=== PATIENT | male | born 1970 | race Caucasian/White ===

== ENCOUNTER 2016-08-29 00:04 | Inpatient (IN) | payer OTHER ==
[~2016-08-29] VITALS: Ht 185.4 cm; Wt 143.0 kg
[~2016-08-29 00:04] MED LIST: ALDACTONE25 MG PO; AMIODARONE PO; ASCORBIC ACID500 M3 PO; AURALGAN14.8 ML RIGHT EAR; AZELASTINE205.5 MCG/ BOTH NARES; BACTRIM,SEPT1 TABLET PO; BUSPAR10 MG PO; BUSPIRONE HCL10 MG PO; CARVEDILOL3.125 MG PO; CELEBREX200 MG PO; CORDARONE200 MG PO; COREG3.125 M1 PO; COREG6.25 M1 PO; FOLIC ACID1 MG PO; FUROSEMIDE40 MG PO; FUROSEMIDE80 MG PO; K-DUR10 MEQ PO; KEFLEX500 MG PO; KEFLEX750 MG PO; LASIX40 MG PO; LASIX80 MG PO; LIBRIUM5 MG PO; LISINOPRIL5 MG PO; METOLAZONE5 MG PO; METOPROLOL SUCC25 MG PO; MIRTAZAPINE7.5 MG PO; MULTI VITAMIN1 EACH PO; NAPROSYN-EC500 MG PO; NAPROXEN500 M1 PO; NORCO 5/3251 TABLET PO; PERCOCET 5/31 TABLET PO; POTASSIUM CHLO20 ME1 PO; THERAGRAN1 TABLET PO; TOPROL XL25 MG PO; ULTRAM50 MG PO; VITAMIN B-1100 MG PO; VITAMIN C500 M1 PO; XARELTO1 EACH PO; XARELTO15 MG PO; XARELTO20 MG PO
[2016-08-29 00:54] LABS: CREATININE 1.2 mg/dL (0.6-1.3); POTASSIUM 2.3 mEq/L (3.7-5.4)
[2016-08-29 01:02] LABS: EOSINOPHIL (%) 2.1 % (0-5); EOSINOPHIL COUNT 0.2 K/uL (0-0.3); HEMATOCRIT 45.1 % (38.0-50.0); IMMATURE GRANULOCYTE (%) 0.4 % (0.0-0.7); INSTRUMENT ABS NEUTROPHIL CT 7.6 K/uL; MCH 32.8 PG (29.0-34.0); MCHC 34.8 G/DL (30.0-36.0); MCV 94.4 FL (86-99); MEAN PLAT.VOLUME 10.4 uM^3 (9.0-12.4); MONOCYTE (%) 7.3 % (3-12); MONOCYTE COUNT 0.8 K/uL (0-0.8); NEUTROPHIL (%) 71.6 % (45-76); NEUTROPHIL COUNT 7.6 K/uL (1.8-6.4); PLATELET COUNT 262 K/uL (156-360); RBC DIS.WIDTH-CV 12.7 % (11.8-14.6); RBC DIS.WIDTH-SD 44.2 % (39-53); RED BLOOD COUNT 4.78 M/uL (4.00-5.50); WHITE BLOOD COUNT 10.6 K/uL (4.1-10.2)
[2016-08-29 01:22] LABS: TROP-I INTERPRETATION NEGATIVE; TROPONIN-I 0.16 ng/mL (0.0-0.30)
[2016-08-29 04:07] LABS: CHLORIDE 94 mEq/L (99-109); POTASSIUM 3.3 mEq/L (3.7-5.4); SODIUM 136 mEq/L (136-147)
[2016-08-29 04:08] LABS: GLUCOSE 134 mg/dL (70-99)
[2016-08-29 04:10] LABS: ANION GAP 12 MEQ/L (2-14)
[2016-08-29 04:12] LABS: GFR ESTIMATE (CALCULATED) > 59 mL/min/
[2016-08-29 04:13] LABS: UREA NITROGEN (BUN) 15 mg/dL (9-23)
[2016-08-29 08:26] LABS: TROP-I INTERPRETATION NEGATIVE; TROPONIN-I 0.07 ng/mL (0.0-0.30)
[2016-08-29 08:28] LABS: POTASSIUM 3.3 mEq/L (3.7-5.4)
[2016-08-29 08:29] LABS: MAGNESIUM 2.3 mg/dL (1.3-2.7)
[2016-08-29 08:29] LABS: MAGNESIUM 2.1 mg/dL (1.3-2.7)
[2016-08-29] MEDS ORDERED: CORDARONE200 MG PO (08:39)
[2016-08-29] MEDS ORDERED: TYLENOL REGULA325 MG PO (08:44)
[2016-08-29 11:59] VITALS: BP 107/78
== END 2016-08-29 11:20 | disposition left against medical advice (07) | DRG 315 ==
LOC: EME 00:04 → EDOF 04:15
PROVIDERS: Emergency Medicine; Hospitalist
DX: T82.118A Breakdown (mechanical) of other cardiac electronic device, initial encounter (principal); I47.2 Ventricular tachycardia; I42.6 Alcoholic cardiomyopathy; Z68.41 Body mass index [BMI] 40.0-44.9, adult; E87.6 Hypokalemia; F10.20 Alcohol dependence, uncomplicated; I25.10 Atherosclerotic heart disease of native coronary artery without angina pectoris; Z91.120 Patient's intentional underdosing of medication regimen due to financial hardship; E66.01 Morbid (severe) obesity due to excess calories; I10 Essential (primary) hypertension; I48.0 Paroxysmal atrial fibrillation; G40.909 Epilepsy, unspecified, not intractable, without status epilepticus; F43.10 Post-traumatic stress disorder, unspecified; F17.210 Nicotine dependence, cigarettes, uncomplicated; S62.102D Fracture of unspecified carpal bone, left wrist, subsequent encounter for fracture with routine healing; Z79.01 Long term (current) use of anticoagulants; Z86.718 Personal history of other venous thrombosis and embolism; Z86.711 Personal history of pulmonary embolism; Z91.19 Patient's noncompliance with other medical treatment and regimen
CPT/HCPCS: 71010; 80047; 80048; 83735; 83880; 84132 91; 84484; 85025; 93005; 99281; 99285; J0610; J2060; J2270; J3475; J3480; J7050

== ENCOUNTER 2017-01-19 18:31 | Inpatient (IN) | payer OTHER ==
[~2017-01-19] VITALS: Ht 188 cm; Wt 82.5 kg
[~2017-01-19 18:31] MED LIST changes: +TYLENOL REGULA325 MG PO
[2017-01-19 18:55] LABS: HEMATOCRIT 44.8 % (38.0-50.0); MCH 33.5 PG (29.0-34.0); MCHC 35.9 G/DL (30.0-36.0); MCV 93.3 FL (86-99); MEAN PLAT.VOLUME 10.4 uM^3 (9.0-12.4); PLATELET COUNT 228 K/uL (156-360); RBC DIS.WIDTH-CV 12.8 % (11.8-14.6); RBC DIS.WIDTH-SD 43.9 % (39-53); WHITE BLOOD COUNT 8.8 K/uL (4.1-10.2)
[2017-01-19 18:59] LABS: CREATININE 1.1 mg/dL (0.6-1.3); POTASSIUM 2.2 mEq/L (3.7-5.4)
[2017-01-19 19:04] LABS: INTER. NORMALIZED RATIO 1.8; PROTHROMBIN TIME 19.7 SEC (10.2-12.9)
[2017-01-19 19:07] LABS: PTT 39.5 SEC (25-37)
[2017-01-19 19:08] LABS: CHLORIDE 97 mEq/L (99-109); POTASSIUM 2.7 mEq/L (3.7-5.4); SODIUM 143 mEq/L (136-147)
[2017-01-19 19:09] LABS: MAGNESIUM 1.9 mg/dL (1.3-2.7)
[2017-01-19 19:10] LABS: GLUCOSE 158 mg/dL (70-99)
[2017-01-19 19:11] LABS: ANION GAP 22 MEQ/L (2-14)
[2017-01-19 19:14] LABS: GFR ESTIMATE (CALCULATED) > 59 mL/min/
[2017-01-19 19:15] LABS: UREA NITROGEN (BUN) 11 mg/dL (9-23)
[2017-01-19 19:18] LABS: TROP-I INTERPRETATION NEGATIVE; TROPONIN-I 0.08 ng/mL (0.0-0.30)
[2017-01-19 19:22] LABS: SERUM ETHYL ALCOHOL < 10 mg/dL
[2017-01-19] MEDS ORDERED: HYDROCODON-ACE1 EAC8 PO (21:40)
[2017-01-19] MEDS ORDERED: BUSPAR15 MG PO (21:44)
[2017-01-19] MEDS ORDERED: SPIRONOLACTONE25 MG PO (21:45)
[2017-01-19] MEDS ORDERED: CYMBALTA30 MG PO (21:49)
[2017-01-19] MEDS ORDERED: ZANAFLEX2 M1 PO (21:50)
[2017-01-19 23:47] VITALS: BP 125/72
[2017-01-20 01:47] LABS: TROP-I INTERPRETATION NEGATIVE; TROPONIN-I 0.12 ng/mL (0.0-0.30)
[2017-01-20] MEDS ORDERED: XARELTO20 MG PO (03:58)
[2017-01-20 04:25] VITALS: BP 126/90
[2017-01-20 07:17] LABS: HEMATOCRIT 37.6 % (38.0-50.0); MCH 33.2 PG (29.0-34.0); MCHC 34.3 G/DL (30.0-36.0); MCV 96.9 FL (86-99); MEAN PLAT.VOLUME 10.5 uM^3 (9.0-12.4); PLATELET COUNT 171 K/uL (156-360); RBC DIS.WIDTH-CV 13.3 % (11.8-14.6); RBC DIS.WIDTH-SD 47.2 % (39-53); RED BLOOD COUNT 3.88 M/uL (4.00-5.50); WHITE BLOOD COUNT 10.6 K/uL (4.1-10.2)
[2017-01-20 07:32] LABS: ANION GAP 9 MEQ/L (2-14); CHLORIDE 103 MEQ/L (99-109); GFR ESTIMATE (CALCULATED) > 59 mL/min/; SAMPLE HEMOLYSIS CHECK 0; SAMPLE ICTERIC CHECK 0; SAMPLE LIPEMIA CHECK 0; SODIUM 142 MEQ/L (136-147); UREA NITROGEN (BUN) 12 mg/dL (9-23)
[2017-01-20 07:33] LABS: GLUCOSE 99 mg/dL (70-99); POTASSIUM 3.8 MEQ/L (3.7-5.4)
[2017-01-20 07:34] LABS: TROP-I INTERPRETATION NEGATIVE; TROPONIN-I 0.09 ng/mL (0.0-0.30)
[2017-01-20 09:16] VITALS: BP 133/74
[2017-01-20 11:28] VITALS: BP 112/66
[2017-01-20] MEDS ORDERED: K-DUR20 MEQ PO (15:00)
[2017-01-20] MEDS ORDERED: DIVALPROEX SOD250 MG PO (15:00)
[2017-01-20 16:15] VITALS: BP 109/59
== END 2017-01-20 17:12 | disposition home or self-care (01) | DRG 309 ==
LOC: EME 18:31 → EDOF 21:07 → ENRESERV 21:09 → 4EAST 23:33
PROVIDERS: Emergency Medicine; Hospitalist
DX: I47.2 Ventricular tachycardia (principal); E87.6 Hypokalemia; T50.3X6A Underdosing of electrolytic, caloric and water-balance agents, initial encounter; Z91.120 Patient's intentional underdosing of medication regimen due to financial hardship; I11.0 Hypertensive heart disease with heart failure; I50.9 Heart failure, unspecified; I42.0 Dilated cardiomyopathy; I48.0 Paroxysmal atrial fibrillation; F17.210 Nicotine dependence, cigarettes, uncomplicated; F43.10 Post-traumatic stress disorder, unspecified; G40.909 Epilepsy, unspecified, not intractable, without status epilepticus; I25.10 Atherosclerotic heart disease of native coronary artery without angina pectoris; L03.119 Cellulitis of unspecified part of limb; G43.909 Migraine, unspecified, not intractable, without status migrainosus; F10.21 Alcohol dependence, in remission; G89.29 Other chronic pain; E66.01 Morbid (severe) obesity due to excess calories; Z86.711 Personal history of pulmonary embolism; Z86.718 Personal history of other venous thrombosis and embolism; Z95.810 Presence of automatic (implantable) cardiac defibrillator; Z91.14 Patient's other noncompliance with medication regimen; Z68.23 Body mass index [BMI] 23.0-23.9, adult
CPT/HCPCS: 80047; 80048; 83735; 84132 91; 84484; 85027; 85610; 85730; 93005; 99281; 99285; G0480; J2250; J2405; J3475; J3480; J7030